=== PATIENT | male | born 1965 | race African-American/Black ===

== ENCOUNTER 2024-01-26 18:24 | Emergency (ER) | payer OTHER, MEDICAID ==
[~2024-01-26] VITALS: Ht 185.4 cm; Wt 90.7 kg
[2024-01-26 18:25] VITALS: BP_SYST 178; PULSE 98; RESP 19; TEMP 98.1; O2SAT 99
[2024-01-26] MEDS: KETOROLAC TROMETHAMINE 30 MG VIAL IM ONE (20:04)
[2024-01-26] MEDS: ACETAMINOPHEN 500 MG TABLET PO ONE (20:04)
[2024-01-26 21:00] VITALS: BP_SYST 168; PULSE 102; RESP 18; TEMP 98.1; O2SAT 97
== END 2024-01-26 21:00 | disposition home or self-care (01) ==
LOC: SED 18:24
DX: S39.012A Strain of muscle, fascia and tendon of lower back, initial encounter (principal); M25.551 Pain in right hip; I10 Essential (primary) hypertension; V89.2XXA Person injured in unspecified motor-vehicle accident, traffic, initial encounter; Y93.89 Activity, other specified; Y92.89 Other specified places as the place of occurrence of the external cause; Y99.8 Other external cause status
CPT/HCPCS: 99283; 73502; 96372; J1885